=== PATIENT | male | born 1985 | race Caucasian/White ===

== ENCOUNTER 2018-09-08 01:42 | Inpatient (IN) | payer SELFPAY ==
[2018-09-08] MEDS ORDERED: NA CHLORIDE 0.9% 1,000 ML ONE (02:32)
[2018-09-08 02:33] LABS: Barbiturates NEGATIVE (NEGATIVE); Benzodiazepines NEGATIVE (NEGATIVE); Cocaine NEGATIVE (NEGATIVE); METHAMPHETAM NEGATIVE (NEGATIVE); Methadone NEGATIVE (NEGATIVE); Opiates NEGATIVE (NEGATIVE); Phencyclidine NEGATIVE (NEGATIVE); THC Cannibis NEGATIVE (NEGATIVE)
[2018-09-08] MEDS ORDERED: BENZTROPINE 2 MG/2 ML VIAL ONE (02:37)
[2018-09-08 02:50] LABS: Absolute Lymphocytes (CBC) 1.7 K/uL (0.7-4.9); Absolute Monocytes 0.6 K/uL (0.1-1.3); Absolute Neutrophil 11.1 K/uL (1.8-8.0); Basophils % 0.4 % (0-1.3); Eosinophils % 0.2 % (0-4.4); Hematocrit 49.7 % (39.6-49.0); Lymphocytes % 12.9 % (15.3-44.8); MPV 8.4 fL (7.6-11.3); Monocytes % 4.1 % (3.3-12.3); RBC Red Blood Cell Count 5.96 M/uL (4.33-5.43)
[2018-09-08 02:51] LABS: Protime INR 1.04
[2018-09-08 03:30] LABS: ALT/SGPT 24 U/L (12-78); AST/SGOT 13 U/L (15-37); Albumin 4.2 g/dL (3.4-5.0); Alkaline Phosphatase 65 U/L (45-117); BUN Blood Urea Nitrogen 17 mg/dL (7-18); Bicarbonate 25 mmol/L (21-32); Bilirubin Direct 0.1 mg/dL (0-0.2); Bilirubin Total 0.4 mg/dL (0.2-1.0); Glucose Level 146 mg/dL (74-106); Potassium 3.9 mmol/L (3.5-5.1); Protein, Total 8.1 g/dL (6.4-8.2); Sodium Level 141 mmol/L (136-145)
--- NOTE | 2018-09-08 05:53 | ER ---
Nurse's Notes [facility] Name: Berto Perez Sr Age: 32 yrs Sex: Male : 1985 Arrival Date: 09/08/2018 Time: 01:44 Bed 5 Private MD: Diagnosis: Acute intentional drug overdose;Altered mental status due to tegretol overdose Presentation: 09/08 01:45 Presenting complaint: EMS states: Reports pt family called EMS, they reported he took ea approximately 43 carbamazepine pills. EMS report pt is A and O x 4 but unsteady on his feet and groggy. Pt reports he took an unknown amount of carbamazepine pills Saturday morning and started feeling "buzzed", Saturday morning. Pt states "tonight I couldn't even walk". Transition of care: patient was not received from another setting of care. Onset of symptoms was September 08, 2018. Risk Assessment: Do you want to hurt yourself or someone else? Patient reports no desire to harm self or others. Other: Pt reports he is not sure if he was trying to hurt himself. Initial Sepsis Screen: Does the patient meet any 2 criteria?. Initial Sepsis Screen: Does the patient have a suspected source of infection? No. Patient's initial sepsis screen is negative. Care prior to arrival: None. 01:45 Method Of Arrival: EMS: [facility] 01:45 Acuity: QUINN 2 ea Historical: - Allergies: 04:06 No Known Allergies; ea - PMHx: 04:06 None; ea - PSHx: 04:06 None; ea - Immunization history:: Adult Immunizations up to date. - Social history:: Smoking status: unknown. - Ebola Screening: : No symptoms or risks identified at this time. Screenin:58 Abuse screen: Denies threats or abuse. Nutritional screening: No deficits noted. ea Tuberculosis screening: No symptoms or risk factors identified. Fall Risk IV access (20 points). Assessment: 02:05 General: Appears in no apparent distress. Behavior is drowsy, restless. Pain: Denies ea pain. Neuro: Level of Consciousness is awake, alert, obeys commands, Oriented to person, place, time, situation. Cardiovascular: Patient's skin is warm and dry. Respiratory: Airway is patent Respiratory effort is even, unlabored, Respiratory pattern is regular, symmetrical. GI: Abdomen is non-distended. : No signs and/or symptoms were reported regarding the genitourinary system. EENT: No signs and/or symptoms were reported regarding the EENT system. Derm: Skin is pink, warm \\T\\ dry. Musculoskeletal: No signs and/or symptoms reported regarding the musculoskeletal system. 03:01 Reassessment: Patient and/or family updated on plan of care and expected duration. Pain ea level reassessed. Pt resting with eyes closed, respirations even and unlabored. Chest expansions even and symmetrical. No s/s of pain or discomfort noted at this time. 04:04 Reassessment: Patient and/or family updated on plan of care and expected duration. Pain ea level reassessed. Pt resting with eyes closed, respirations even and unlabored, chest expansions even and symmetrical. No s/s of pain or discomfort noted at this time. 05:42 Reassessment: Pt resting with eyes closed, respirations even and unlabored. Chest ea expansions even and symmetrical. No s/s of pain or discomfort noted at this time. 06:27 Reassessment: Spoke with who states that pt took "many" pills due to her leaving [place] with the baby. Explained that pt was on suicide watch and would be going to ICU to be monitored. She understands. Did get to see pt but instructed on to wake him. She will contact pts mother and notify her of admission. 07:14 Reassessment: [facility] personnel reports that the pt needs a mental health warrant, sg reports that the pt no longer wants to be in the hospital, awaiting the mental health deputy/dyer helper to issue the mental health warrant. Overdose: 07:06 Patient took 43 tabs of Tegretol. Overdose occurred more than 10 hours ago. sg Vital Signs: 02:00 BP 147 / 102; Pulse 105; Resp 19; Temp 98.3; Pulse Ox 96% on R/A; ea 03:03 BP 107 / 65; Pulse 81; Resp 18; Pulse Ox 99% on R/A; ea 06:05 BP 113 / 68; Pulse 72; Resp 12; Pulse Ox 99% on R/A; tl2 Sheryl Coma Score: 04:30 Eye Response: to voice(3). Verbal Response: oriented(5). Motor Response: localizes snw pain(5). Total: 13. ED Course: 01:44 Patient arrived in ED. ea 01:45 Safety Checks: Personal items have been removed. The door is open or patient has been ea placed in a hallway bed/chair. There are no family/friend visitors at this time Sitter present at this time. 01:52 [facility] Crane [facility]-C [facility]. snw 01:53 Leobardo Lee MD is Attending Physician. snw 01:58 Triage completed. ea 02:00 Safety Checks: Personal items have been removed. The door is open or patient has been ea placed in a hallway bed/chair. There are no family/friend visitors at this time Sitter present at this time. 02:00 Patient has correct armband on for positive identification. Bed in low position. Call ea light in reach. Side rails up X2. 02:00 Arm band placed on right wrist. Patient placed in an exam room, on a stretcher, on ea pulse oximetry. 02:00 Safety checks: Items removed: yes. Door open/sign placed on door: Patient placed in ag4 hallway bed. Family/friend present: no. Sitter present: Yes. 02:01 Netta Darden RN is Primary Nurse. ea 02:01 Inserted saline lock: 18 gauge in right antecubital area, using aseptic technique. ea Blood collected. Inserted by Woodrow MAR. 02:15 Safety Checks: Personal items have been removed. The door is open or patient has been ea placed in a hallway bed/chair. There are no family/friend visitors at this time Sitter present at this time. 02:15 Safety checks: Items removed: yes. Door open/sign placed on door: Patient placed in ag4 hallway bed. Family/friend present: no. Sitter present: Yes. 02:30 Safety Checks: Personal items have been removed. The door is open or patient has been ea placed in a hallway bed/chair. There are no family/friend visitors at this time Sitter present at this time. 02:30 Safety checks: Items removed: yes. Door open/sign placed on door: Patient placed in ag4 hallway bed. Family/friend present: no. Sitter present: Yes. 02:45 Safety checks: Items removed: yes. Door open/sign placed on door: Patient placed in ag4 hallway bed. Family/friend present: no. Sitter present: Yes. 03:00 Safety checks: Items removed: yes. Door open/sign placed on door: Patient placed in ag4 hallway bed. Family/friend present: no. Sitter present: Yes. 03:15 Safety checks: Items removed: yes. Door open/sign placed on door: Patient placed in ag4 hallway bed. Family/friend present: no. Sitter present: Yes. 03:30 Safety checks: Items removed: yes. Door open/sign placed on door: Patient placed in ag4 hallway bed. Family/friend present: no. Sitter present: Yes. 03:32 CT Head Brain wo Cont In Process Unspecified. EDMS 03:45 Safety checks: Items removed: yes. Door open/sign placed on door: Patient placed in ag4 hallway bed. Family/friend present: no. Sitter present: Yes. 04:00 Safety checks: Items removed: yes. Door open/sign placed on door: Patient placed in ag4 hallway bed. Family/friend present: no. Sitter present: Yes. 04:15 Safety checks: Items removed: yes. Door open/sign placed on door: Patient placed in ag4 hallway bed. Family/friend present: no. Sitter present: Yes. 04:30 Safety checks: Items removed: yes. Door open/sign placed on door: Patient placed in ag4 hallway bed. Family/friend present: no. Sitter present: Yes. 04:45 Safety checks: Items removed: yes. Door open/sign placed on door: Patient placed in ag4 hallway bed. Family/friend present: no. Sitter present: Yes. 05:00 Safety checks: Items removed: yes. Door open/sign placed on door: Patient placed in ag4 hallway bed. Family/friend present: no. Sitter present: Yes. 05:49 Margot Concepcion MD is Hospitalizing Provider. wa 07:00 Safety checks: Items removed: yes. Door open/sign placed on door: yes. Family/friend ms present: no. Sitter present: Yes. 07:15 Safety checks: Items removed: yes. Door open/sign placed on door: yes. Family/friend ms present: no. Sitter present: Yes. 07:28 [facility] pool lifeguard in room with PT. ms 07:30 Safety checks: Items removed: yes. Door open/sign placed on door: yes. Family/friend ms present: no. Sitter present: Yes. 07:45 Safety checks: Items removed: yes. Door open/sign placed on door: yes. Family/friend ms present: no. Sitter present: Yes. 07:49 Diet: Patient given a regular meal tray. ms 08:00 Safety checks: Items removed: yes. Door open/sign placed on door: yes. Family/friend ms present: no. Sitter present: Yes. 08:15 Safety checks: Items removed: yes. Door open/sign placed on door: yes. Family/friend ms present: no. Sitter present: Yes. 08:30 Safety checks: Items removed: yes. Door open/sign placed on door: yes. Family/friend ms present: no. Sitter present: Yes. 08:45 Safety checks: Items removed: yes. Door open/sign placed on door: yes. Family/friend ms present: no. Sitter present: Yes. 09:00 Safety checks: Items removed: yes. Door open/sign placed on door: yes. Family/friend ms present: no. Sitter present: Yes. 09:16 Patient admitted, IV remains in place. intact, No redness/swelling at site. sg Administered Medications: 02:19 Drug: NS 0.9% 1000 ml Route: IV; Rate: 1 bolus; Site: right antecubital; ea 03:30 Follow up: Response: No adverse reaction; IV Status: Completed infusion; IV Intake: ea 1000ml 02:30 Drug: COgentin 2 mg Route: IVP; Site: right antecubital; ea 03:00 Follow up: Response: No adverse reaction ea Intake: 03:30 IV: 1000ml; Total: 1000ml. ea Outcome: 05:52 Decision to Hospitalize by Provider. wa 09:15 Admitted to ICU accompanied by nurse, via stretcher, room 7, on monitor, with chart, sg Report called to ISABELA Rascon 09:15 Condition: stable 09:15 Instructed on follow up and referral plans. safety practices, Demonstrated understanding of instructions. 09:56 Patient left the ED. iw Signatures: Dispatcher [employer] Yinka Rod RN RN sg Karina Crane, CURRICULUM DEVELOPMENT MANAGER-C CURRICULUM DEVELOPMENT MANAGER-Csnw Elham Haywood, RN RN Edilma Gregg RN RN iw Solis, Maria ms Umesh, Concepcion, ISABELA RN tl2 Netta Darden RN RN Leobardo Lee MD MD wa Guzman, Charles ag4 Corrections: (The following items were deleted from the chart) 02:02 01:58 Fall Risk None identified. [facility] 02:03 02:00 BP 147 / 102; Pulse 105bpm; Resp 19bpm; Pulse Ox 100%; Temp 98.3F; [facility] 07:47 07:28 [facility] pool lifeguard in room with PTP ms ms
--- NOTE | 2018-09-08 05:53 | EDPHYS ---
Physician Documentation [facility] Name: Berto Perez Sr Age: 32 yrs Sex: Male : 1985 Arrival Date: 09/08/2018 Time: 01:44 Bed 5 Private MD: ED Physician Leobardo Lee HPI: 09/08 02:01 This 32 yrs old Male presents to ER via EMS with complaints of Overdose. snw 02:01 Context: Method: the patient has a confirmed or suspected ingestion, Tegretol, Time: snw the patient's OD/poisoning occurred at an unknown time, Extent: "a lot", the OD/poisoning occurred at at home, Psychiatric history: the patient has a known psychiatric disorder, depression, Previous OD/poisoning history: yes, 3 year(s) ago. Associated signs and symptoms: Pertinent positives: fall x 4 episodes. Severity of symptoms: At their worst the symptoms were moderate. The patient has experienced a previous episode. It is unknown whether or not the patient has recently seen a physician. Pt got into an argument with girlfriend and took "a lot" of tegretol. Historical: - Allergies: 04:06 No Known Allergies; ea - PMHx: 04:06 None; ea - PSHx: 04:06 None; ea - Immunization history:: Adult Immunizations up to date. - Social history:: Smoking status: unknown. - Ebola Screening: : No symptoms or risks identified at this time. ROS: 02:00 Constitutional: Negative for fever, chills, and weight loss, Eyes: Negative for injury, snw pain, redness, and discharge, ENT: Negative for injury, pain, and discharge, Neck: Negative for injury, pain, and swelling, Cardiovascular: Negative for chest pain, palpitations, and edema, Respiratory: Negative for shortness of breath, cough, wheezing, and pleuritic chest pain, Abdomen/GI: Negative for abdominal pain, nausea, vomiting, diarrhea, and constipation, Back: Negative for injury and pain, : Negative for injury, bleeding, discharge, and swelling, MS/Extremity: Negative for injury and deformity. 02:00 Neuro: Negative for headache, weakness, numbness, tingling, and seizure. 02:00 Skin: Positive for abrasion(s). 02:00 Psych: Positive for suicide gesture, "because I was mad". 05:25 All other systems are negative. wa Exam: 01:57 ENT: Nares patent. No nasal discharge, no septal abnormalities noted. Tympanic snw membranes are normal and external auditory canals are clear. Oropharynx with no redness, swelling, or masses, exudates, or evidence of obstruction, uvula midline. Mucous membranes moist. Neck: Trachea midline, no thyromegaly or masses palpated, and no cervical lymphadenopathy. Supple, full range of motion without nuchal rigidity, or vertebral point tenderness. No Meningismus. Chest/axilla: Normal chest wall appearance and motion. Nontender with no deformity. No lesions are appreciated. 01:57 Respiratory: Lungs have equal breath sounds bilaterally, clear to auscultation and percussion. No rales, rhonchi or wheezes noted. No increased work of breathing, no retractions or nasal flaring. Abdomen/GI: Soft, non-tender, with normal bowel sounds. No distension or tympany. No guarding or rebound. No evidence of tenderness throughout. Back: No spinal tenderness. No costovertebral tenderness. Full range of motion. 01:57 Constitutional: The patient appears lethargic. 01:57 Head/face: Noted is contusion, that is superficial, of the left eye. 01:57 Eyes: Pupils: dilated, bilaterally, equal, Extraocular movements: unable to assess. 01:57 Cardiovascular: Rate: tachycardic, Rhythm: regular, Pulses: no pulse deficits are appreciated. 01:57 Skin: injury, abrasion(s), small abrasion noted, of the left eye and abdomen. 01:57 Neuro: Orientation: to person, place, time, situation, Mentation: responsive to voice seizure activity, is not displayed by the patient. 01:57 Psych: Patient having thoughts of suicide. Plan for suicide is overdose on Tegretol Vital Signs: 02:00 BP 147 / 102; Pulse 105; Resp 19; Temp 98.3; Pulse Ox 96% on R/A; ea 03:03 BP 107 / 65; Pulse 81; Resp 18; Pulse Ox 99% on R/A; ea 06:05 BP 113 / 68; Pulse 72; Resp 12; Pulse Ox 99% on R/A; tl2 Sheryl Coma Score: 04:30 Eye Response: to voice(3). Verbal Response: oriented(5). Motor Response: localizes snw pain(5). Total: 13. MDM: 02:06 Patient medically screened. wa 04:29 Other consultation: Poison control, at 04:20, supportive care and IV fluids. snw 05:37 Differential diagnosis: Ingestion/exposure to tegretol with intent to harm self. Data wa reviewed: vital signs, nurses notes. Test interpretation: by ED physician or midlevel provider:. 05:41 Test interpretation: by ED physician or midlevel provider: APAP negative. ASA negative. wa hyperglycemia at 146. leukocytosis at 13.5. UDS and ETOH negative. carbamazepine 33.[address] negative. Response to treatment: the patient's symptoms have markedly improved after treatment. Physician consultation: Margot Concepcion MD. 05:47 ED course: spoke with poison control regarding OD. advised fluids and observation. wa monitor for worsening. 05:48 Test interpretation: by ED physician or midlevel provider: HR 90. sinus. nml axis. nml wa QRS. normal intervals. ST-T wnl. 05:53 ED course: received cogentin for non-purposeful movements consistent with myoclonus vs wa dystonia. 09/08 01:47 Order name: Acetaminophen sn 09/08 01:47 Order name: Basic Metabolic Panel snw 09/08 01:47 Order name: CBC with Diff snw 09/08 01:47 Order name: ETOH Level snw 09/08 01:47 Order name: Hepatic Function snw 09/08 01:47 Order name: PT-INR snw 09/08 01:47 Order name: Ptt, Activated snw 09/08 01:47 Order name: Salicylate sn 09/08 01:47 Order name: Urine Drug Screen; Complete Time: 03:29 snw 09/08 01:48 Order name: Acetaminophen Level; Complete Time: 04:14 EDMS 09/08 01:48 Order name: Basic Metabolic Panel; Complete Time: 04:14 EDMS 09/08 01:49 Order name: CBC with Automated Diff; Complete Time: 03:29 EDMS 09/08 01:49 Order name: Alcohol Serum/Plasma; Complete Time: 03:29 EDMS 09/08 01:47 Order name: EKG; Complete Time: 01:50 snw 09/08 01:47 Order name: EKG - Nurse/Tech; Complete Time: 02:31 snw 09/08 01:47 Order name: IV Saline Lock; Complete Time: 02:31 snw 09/08 01:47 Order name: Labs collected and sent; Complete Time: 02:31 snw 09/08 01:49 Order name: Liver (Hepatic) Function; Complete Time: 04:14 EDMS 09/08 01:49 Order name: Protime (+INR); Complete Time: 03:29 EDMS 09/08 01:49 Order name: PTT, Activated Partial Thromb; Complete Time: 03:29 EDMS 09/08 01:49 Order name: Salicylates Level; Complete Time: 03:29 EDMS 09/08 02:22 Order name: CT Head Brain wo Cont wa 09/08 02:27 Order name: Urine Dipstick--Ancillary (enter results) cm6 09/08 02:43 Order name: Carbamazepine (Tegretol) Level; Complete Time: 04:14 EDMS 09/08 04:22 Order name: EKG; Complete Time: 04:23 snw 09/08 05:47 Order name: Case Management Consult EDRI 09/08 05:47 Order name: Regular EDRI 09/08 01:47 Order name: Urine Dipstick-Ancillary (obtain specimen); Complete Time: 02:07 snw 09/08 01:57 Order name: O2; Complete Time: 02:30 snw Administered Medications: 02:19 Drug: NS 0.9% 1000 ml Route: IV; Rate: 1 bolus; Site: right antecubital; ea 03:30 Follow up: Response: No adverse reaction; IV Status: Completed infusion; IV Intake: ea 1000ml 02:30 Drug: COgentin 2 mg Route: IVP; Site: right antecubital; ea 03:00 Follow up: Response: No adverse reaction ea Disposition: 05:49 Co-signature as Attending Physician, Leobardo Lee MD. jim Disposition: 09/08/18 05:52 Hospitalization ordered by Margot Concepcion for Observation. Preliminary diagnosis are Acute intentional drug overdose, Altered mental status due to tegretol overdose. - Bed requested for Intensive Care Unit. - Status is Observation. iw - Condition is Stable. - Problem is new. - Symptoms have improved. UTI on Admission? No Signatures: Dispatcher [facility] Lindsay Mari RN RN Karina Mathews AIRLINE RADIO OPERATOR-C AIRLINE RADIO OPERATOR-Csnw Edilma Wells, RN ISABELA iw Netta Darden, RN Leobardo Huber ea, MD MD wa Corrections: (The following items were deleted from the chart) 02:42 01:50 CARBAMAZEPINE (TEGRETOL)+C.LAB.BRZ ordered. EDMS EDMS 05:53 05:52 Hospitalization Ordered by Margot Concepcion MD for Observation. Preliminary mw diagnosis is Acute intentional drug overdose; Altered mental status due to tegretol overdose. Bed requested for Telemetry/MedSurg (observation). Status is Observation. Condition is Stable. Problem is new. Symptoms have improved. UTI on Admission? No. ri 09:56 05:53 09/08/2018 05:52 Hospitalization Ordered by Margot Concepcion MD for Observation. iw Preliminary diagnosis is Acute intentional drug overdose; Altered mental status due to tegretol overdose. Bed requested for Intensive Care Unit. Status is Observation. Condition is Stable. Problem is new. Symptoms have improved. UTI on Admission? No. mw
[2018-09-08] MEDS ORDERED: NA CHLORIDE 0.9% 1,000 ML IV SCH (06:00)
--- NOTE | 2018-09-08 06:50 | P.HP ---
Certification for Inpatient Patient admitted to: Inpatient With expected LOS: >2 Midnights Patient will require the following post-hospital care: None Practitioner: I am a practitioner with admitting privileges, knowledge of patient current condition, hospital course, and medical plan of care. Services: Services provided to patient in accordance with Admission requirements found in Title 42 Section 412.3 of the Code of Federal Regulations Patient History Date of Service: 09/08/18 Reason for admission: Suicidal ideations History of Present Illness: Patient is a 32-year-old gentleman who has been upset because apparently he got into an argument with his girlfriend. Patient apparently took 43 Tegretol pills , and he apparently was trying to hurt himself. Patient at this time is not that communicative. He does not rule a lot of information and he is lethargic. He is arousable. But even when he arouses he just as for risk friend to come and talk to him. Will admit him to the hospital for monitoring of his Tegretol level. Will also needs psychiatric evaluation for inpatient psychiatry. - Past Medical/Surgical History Past Medical History: Unable to obtain Past Surgical History: Unable to obtain - Family History Father Family History: Reviewed- Non-Contributory - Social History Smoking Status: Current some day smoker Alcohol use: Yes CD- Drugs: Yes Review of Systems 10-point ROS is otherwise unremarkable Physical Examination - Vital Signs Temperature: 99 F Blood Pressure: 130/80 Pulse: 78 Respirations: 18 Pulse Ox (%): 99 - Physical Exam General: Alert, Other (Lethargic) HEENT: Atraumatic, PERRLA, Mucous membr. moist/pink, EOMI, Sclerae nonicteric Neck: Supple, 2+ carotid pulse no bruit, No LAD, Without JVD or thyroid abnormality Respiratory: Clear to auscultation bilaterally, Normal air movement Cardiovascular: Regular rate/rhythm, Normal S1 S2, No murmurs Gastrointestinal: Normal bowel sounds, Soft and benign, Non-distended, No tenderness Musculoskeletal: No clubbing, No swelling, No tenderness Integumentary: No rashes Neurological: Normal speech, Normal tone, Sensation intact, Cranial nerves 3-12 intact, Normal affect, Abnormal gait, Abnormal strength Lymphatics: No axilla or inguinal lymphadenopathy - Studies Laboratory Data (last 24 hrs) 09/08/18 02:10: PT 12.2, INR 1.04, APTT 27.7 09/08/18 02:10: WBC 13.5 H, Hgb 16.7, Hct 49.7 H, Plt Count 351 09/08/18 02:10: Sodium 141, Potassium 3.9, BUN 17, Creatinine 1.17, Glucose 146 H, Total Bilirubin 0.4, AST 13 L, ALT 24, Alkaline Phosphatase 65 Assessment & Plan - Problems (Diagnosis) (1) Suicidal ideation Current Visit: Yes Status: Acute (2) Tegretol toxicity Current Visit: Yes Status: Acute (3) Overdose of anticonvulsant Current Visit: Yes Status: Acute - Plan PLAN: 1. Aggressive hydration 2. Suicidal precautions 3. Monitor electrolytes 4. Tegretol toxicity-check levels daily 5. Repeat labs in the evening 6. GI/DVT prophylaxis Discharge Plan: Psychiatry Plan to discharge in: Greater than 2 days - Advance Directives Does patient have a Living Will: No Does patient have a Durable POA for Healthcare: No - Code Status/Comfort Care Code Status Assessed: Yes Code Status: Full Code Critical Care: No Time Spent Managing PTS Care (In Minutes): 45
--- NOTE | 2018-09-08 09:54 | EKG ---
Test Date: 2018-09-08 Test Time: 01:54:23 Hydraulic Hammer Operator: AG3 MEASUREMENT RESULTS: Intervals: Rate: 90 [place]: 146 QRSD: 78 QT: 346 QTc: 423 [place]: P: 58 AZ: 146 QRS: 51 T: 48 INTERPRETIVE STATEMENTS: Normal sinus rhythm Normal ECG Compared to ECG 09/19/2013 00:12:24 Sinus tachycardia no longer present Electronically Signed On 09-08-18 09:53:37 CDT by Kameron Jin
[2018-09-08] MEDS: ENOXAPARIN 40 MG/0.4 ML SQ SCH (10:03)
--- NOTE | 2018-09-08 10:36 | RAD REPORT ---
EXAM DESCRIPTION: CT - Head Brain Wo Cont - 09/08/2018 6:14 am CLINICAL HISTORY: The patient is 32 years old and is Male; AMS. drug OD TECHNIQUE: Axial computed tomography images of the head/brain without intravenous contrast. Sagitt al and coronal reformatted images were created and reviewed. This CT exam was performed using one o r more of the following dose reduction techniques: automated exposure control, adjustment of the mA and/or kV according to patient size, and/or use of iterative reconstruction technique. COMPARISON: No relevant prior studies available. FINDINGS: BRAIN: Unremarkable. The nicole-white matter differentiation is preserved . No hemorrhag e. No significant white matter disease. No edema. No extra-axial fluid collections. VENTRICLES: Unremarkable. No ventriculomegaly. BONES/JOINTS: No acute fracture. SOFT TISSUES: Unremarkable. SINUSES: Unremarkable as visualized. No acute sinusitis. MASTOID AIR CELLS: Unremarkable as visualized. No mastoid effusion. IMPRESSION: No acute intracranial findings. Electronically signed by: Shannon Guerra MD 09/08/2018 3:36 AM CDT Due to temporary technical issues with the PACS/Fluency reporting system, reports are being signed by the in house radiologist as a courtesy to ensure prompt reporting. The interpreting radiologist is f ully responsible for the content of the report.
--- NOTE | 2018-09-08 12:54 | P.PN ---
Subjective Date of Service: 09/08/18 Primary Care Provider: AMIRA Chief Complaint: Suicidal ideations Subjective: Doing well (Patient doing well this time. Patient admits overdosing on medication. Patient desires to leave.) Physical Examination - Vital Signs Temperature: 99 F Blood Pressure: 130/80 Pulse: 78 Respirations: 18 Pulse Ox (%): 99 - Physical Exam General: Alert, In no apparent distress, Cooperative HEENT: Atraumatic Neck: Supple Respiratory: Clear to auscultation bilaterally, Normal air movement Cardiovascular: Normal pulses, Regular rate/rhythm Gastrointestinal: Normal bowel sounds, Soft and benign, Non-distended Integumentary: No erythema, No warmth, No cyanosis Neurological: Normal speech, Normal strength at 5/5 x4 extr, Normal tone, Abnormal affect (Increased anxiety noted) - Studies Laboratory Data (last 24 hrs) 09/08/18 02:10: PT 12.2, INR 1.04, APTT 27.7 09/08/18 02:10: WBC 13.5 H, Hgb 16.7, Hct 49.7 H, Plt Count 351 09/08/18 02:10: Sodium 141, Potassium 3.9, BUN 17, Creatinine 1.17, Glucose 146 H, Total Bilirubin 0.4, AST 13 L, ALT 24, Alkaline Phosphatase 65 Assessment & Plan Discharge Plan: Psychiatry Plan to discharge in: 24 Hours (To 48 hr) Physician Review Additional Text: Impression: Tegretol overdose with suicidal ideation complicated with history of schizophrenia, noncompliance with medication Tobacco abuse Plan: Tegretol overdose with suicidal ideation complicated with history of schizophrenia, noncompliance with medication Patient admitted to ICU for 1 on 1 care due to suicide ideation. Case discussed with [facility] who has evaluated patient. Both [facility] and myself agree that the patient should require psychiatric inpatient treatment once medically stable. Tegretol level elevated. Poison control has been called. Continue monitor Tegretol levels daily. Continue monitor lab closely. Continue IV fluids. Patient likely with noncompliance of his medication and follow up with psychiatry. Patient in danger of leaving facility with still suicide ideation. Patient now has senior care warrant to keep the patient hospitalized. Will monitor closely. Suicide prevention and place. Anticipate improvement likely by tomorrow. If clinically stable will medically clear to pursue inpatient psychiatric placement. Tobacco abuse: Will provide nicotine patch. Time Spent Managing Pts Care (In Minutes): 55
[2018-09-08 15:14] LABS: Urine Blood NEGATIVE (NEG); Urine Glucose NEGATIVE (NEG); Urine Protein 1+ (NEG); Urine Specific Gravity >1.030 (1.005-1.030); Urine pH 5.5 (5.0-7.0)
[2018-09-08] MEDS: NACHLORIDE 0.45% 1,000 ML IV SCH ×2 (17:49→21:00)
[2018-09-08] MEDS: ACETAMINOPHEN 500 MG TAB PO PRN (19:29)
[2018-09-09] MEDS: NACHLORIDE 0.45% 1,000 ML IV SCH ×2 (01:33→11:40)
[2018-09-09 05:16] LABS: Absolute Lymphocytes (CBC) 3.5 K/uL (0.7-4.9); Absolute Monocytes 0.5 K/uL (0.1-1.3); Absolute Neutrophil 5.8 K/uL (1.8-8.0); Basophils % 0.8 % (0-1.3); Eosinophils % 0.6 % (0-4.4); Hematocrit 44.6 % (39.6-49.0); Lymphocytes % 35.1 % (15.3-44.8); MPV 8.2 fL (7.6-11.3); Monocytes % 4.6 % (3.3-12.3); RBC Red Blood Cell Count 5.26 M/uL (4.33-5.43)
[2018-09-09 05:23] LABS: Protime INR 0.89
[2018-09-09 05:51] LABS: Albumin 3.3 g/dL (3.4-5.0); Bilirubin Total 0.2 mg/dL (0.2-1.0); Magnesium 2.1 mg/dL (1.8-2.4); Protein, Total 6.4 g/dL (6.4-8.2)
[2018-09-09] MEDS: ENOXAPARIN 40 MG/0.4 ML SQ SCH (09:25)
[2018-09-09] MEDS: NICOTINE 21 MG/PAT TD SCH (09:25)
[2018-09-09] MEDS: FAMOTIDINE 20 MG TAB PO SCH ×2 (11:40→21:51)
[2018-09-09] MEDS ORDERED: FAMOTIDINE 20 MG TAB ONE (11:55)
--- NOTE | 2018-09-09 12:25 | RAD REPORT ---
EXAM DESCRIPTION: CT - Head Brain Wo Cont - 09/09/2018 12:17 pm CLINICAL HISTORY: Weakness, dizziness, blurred vision COMPARISON: CT study September 08, 2018 TECHNIQUE: Axial 5 mm thick images of the head were obtained without IV contrast. All CT scans are performed using dose optimization technique as appropriate and may include automated exposure control or mA/KV adjustment according to patient size. FINDINGS: No intracranial hemorrhage, mass, edema or shift of mid-line structures. No acute infarcti on changes seen. No abnormal extra-axial fluid collections. No cortical edema or sulcal effacement. V entricles are normal. No evidence for an sella or supra sella abnormality. No gross globe or orbital content abnormality seen. Mastoid air cells and visualized portions of the paranasal sinuses are clear. No acute bony findings. IMPRESSION: No acute intracranial finding. No significant change from prior day imaging.
--- NOTE | 2018-09-09 12:27 | RAD REPORT ---
EXAM DESCRIPTION: CT - C Spine Wo Con - 09/09/2018 12:17 pm CLINICAL HISTORY: Weakness, dizziness, blurred vision COMPARISON: None. TECHNIQUE: Axial 2 mm thick images of the cervical spine were obtained with sagittal and coronal rec onstruction images generated and reviewed. All CT scans are performed using dose optimization technique as appropriate and may include automated exposure control or mA/KV adjustment according to patient size. FINDINGS: Cervical bodies are normal in height. C2- T2 are normal in alignment. The occipital condyl es are normally positioned relative to the C1 arch. C1 arch is normally positioned to the articular s urfaces of the C2 body. Mastoid air cells are clear. No skullbase fracture. No tonsillar ectopia. No disk space narrowing. No fracture or acute bony abnormality. No paraspinal mass or hematoma. Central canal detail is inherently limited on CT imaging. No mass, hematoma or suspicious soft tissue finding. IMPRESSION: Negative CT cervical spine examination.
--- NOTE | 2018-09-09 12:27 | P.PN ---
Subjective Date of Service: 09/09/18 Primary Care Provider: AMIRA Chief Complaint: Suicidal ideations Subjective: Other (Patient doing well this time. Patient reported some headache today. Patient had reported a fall prior to admission) Physical Examination - Vital Signs Temperature: 97.4 F Blood Pressure: 136/88 Pulse: 100 Respirations: 15 Pulse Ox (%): 98 - Physical Exam General: Alert, In no apparent distress, Oriented x3, Cooperative HEENT: Atraumatic Neck: Supple Respiratory: Clear to auscultation bilaterally, Normal air movement Cardiovascular: Normal pulses, Regular rate/rhythm Gastrointestinal: Normal bowel sounds, Soft and benign, Non-distended, No masses , No rebound, No guarding Musculoskeletal: No erythema, No tenderness, No warmth Integumentary: No tenderness/swelling, No erythema, No warmth, No cyanosis Neurological: Normal speech, Normal strength at 5/5 x4 extr, Normal tone - Studies Medications List Reviewed: Yes Assessment & Plan Discharge Plan: Psychiatry Plan to discharge in: 24 Hours Physician Review Additional Text: Impression: Tegretol overdose with suicidal ideation complicated with history of schizophrenia, noncompliance with medication Tobacco abuse Recent fall GERD Plan: Tegretol overdose with suicidal ideation complicated with history of schizophrenia, noncompliance with medication Patient remained stable in ICU. Continue with 1 on 1 care. Tegretol level has decreased. Continue to monitor closely. Once Tegretol level is within normal range then will proceed with inpatient psych transfer after that time. Patient currently in senior living. Patient had reported a of a recent fall prior to admission. He reports a mild headache. Initial CT head unremarkable. Will repeat CT head and neck to verify. Will monitor closely. Tobacco abuse: Will provide nicotine patch. Recent fall: Will check CT scan and neck. GERD: Will start Pepcid. Time Spent Managing Pts Care (In Minutes): 55
[2018-09-09] MEDS ORDERED: NACHLORIDE 0.45% 1,000 ML IV SCH (13:00)
[2018-09-09] MEDS ORDERED: ACT CHARCOAL/SORB 50 GM/240ML PO STA ×2 (15:03→15:18)
[2018-09-09] MEDS ORDERED: ACTIVATED CHARCOAL 25 GM/120 ML TUBE PO STA (15:04)
[2018-09-09] MEDS: ACTIVATED CHARCOAL 25 GM/120 ML TUBE PO SCH ×2 (20:00→21:00)
[2018-09-10] MEDS: ACTIVATED CHARCOAL 25 GM/120 ML TUBE PO SCH (01:00)
[2018-09-10 05:44] LABS: Albumin 3.5 g/dL (3.4-5.0); Bilirubin Total 0.2 mg/dL (0.2-1.0); Magnesium 2.1 mg/dL (1.8-2.4); Potassium 4.2 mmol/L (3.5-5.1); Protein, Total 6.9 g/dL (6.4-8.2)
[2018-09-10 05:47] LABS: Absolute Lymphocytes (CBC) 3.5 K/uL (0.7-4.9); Absolute Monocytes 0.5 K/uL (0.1-1.3); Absolute Neutrophil 6.2 K/uL (1.8-8.0); Basophils % 0.9 % (0-1.3); Lymphocytes % 33.6 % (15.3-44.8); MPV 8.1 fL (7.6-11.3); Monocytes % 5.1 % (3.3-12.3)
[2018-09-10] MEDS: ACETAMINOPHEN 500 MG TAB PO PRN (06:43)
[2018-09-10] MEDS: NICOTINE 21 MG/PAT TD SCH (08:29)
[2018-09-10] MEDS: FAMOTIDINE 20 MG TAB PO SCH (08:29)
[2018-09-10] MEDS: ENOXAPARIN 40 MG/0.4 ML SQ SCH (08:29)
--- NOTE | 2018-09-10 12:53 | P.PN ---
Subjective Date of Service: 09/10/18 Primary Care Provider: AMIRA Chief Complaint: Suicidal ideations Subjective: Doing well (Patient doing well this time. No significant complaints. Patient willing to go to inpatient psychiatric facility.) Physical Examination - Vital Signs Temperature: 97.5 F Blood Pressure: 139/92 Pulse: 87 Respirations: 20 Pulse Ox (%): 100 - Physical Exam General: Alert, In no apparent distress, Oriented x3, Cooperative HEENT: Atraumatic Neck: Supple Respiratory: Clear to auscultation bilaterally, Normal air movement Cardiovascular: Normal pulses, Regular rate/rhythm Gastrointestinal: Normal bowel sounds, Soft and benign, Non-distended, No masses , No rebound, No guarding Neurological: Normal speech, Normal strength at 5/5 x4 extr, Normal tone, Normal affect - Studies Medications List Reviewed: Yes Assessment & Plan Discharge Plan: Psychiatry Plan to discharge in: 24 Hours Physician Review Additional Text: Impression: Tegretol overdose with suicidal ideation complicated with history of schizophrenia, noncompliance with medication Tobacco abuse Recent fall GERD Plan: Tegretol overdose with suicidal ideation complicated with history of schizophrenia, noncompliance with medication Patient has remained stable. Tegretol level now within normal range. Patient did receive activated charcoal yesterday. Patient was evaluated by [facility] the other day. They recommended inpatient psychiatric treatment. Patient medically stable and cleared at this time. Will pursue inpatient psychiatric transfer. Will arrange for transfer. Tobacco abuse: Will provide nicotine patch if required. Recent fall: CT scan of the neck and head unremarkable. GERD: Will continue with Pepcid. Time Spent Managing Pts Care (In Minutes): 55
[2018-09-10 13:17] LABS: HIV AG/AB 4TH GEN Non-reactive (Non-reactive)
--- NOTE | 2018-09-10 17:14 | P.DS ---
Admission Date: 09/08/18 Discharge Date: 09/10/18 Primary Care Provider: AMIRA Disposition: AMA-LEFT AGAINST MEDICAL ADVIC Discharge Condition: GOOD Reason for Admission: Suicidal ideations [facility] Procedures: CT scan: COMPARISON: CT study September 08, 2018 TECHNIQUE: Axial 5 mm thick images of the head were obtained without IV contrast. All CT scans are performed using dose optimization technique as appropriate and may include automated exposure control or mA/KV adjustment according to patient size. FINDINGS: No intracranial hemorrhage, mass, edema or shift of mid-line structures. No acute infarction changes seen. No abnormal extra-axial fluid collections. No cortical edema or sulcal effacement. Ventricles are normal. No evidence for an sella or supra sella abnormality. No gross globe or orbital content abnormality seen. Mastoid air cells and visualized portions of the paranasal sinuses are clear. No acute bony findings. IMPRESSION: No acute intracranial finding. No significant change from prior day imaging. CT Neck: COMPARISON: None. TECHNIQUE: Axial 2 mm thick images of the cervical spine were obtained with sagittal and coronal reconstruction images generated and reviewed. All CT scans are performed using dose optimization technique as appropriate and may include automated exposure control or mA/KV adjustment according to patient size. FINDINGS: Cervical bodies are normal in height. C2- T2 are normal in alignment. The occipital condyles are normally positioned relative to the C1 arch. C1 arch is normally positioned to the articular surfaces of the C2 body. Mastoid air cells are clear. No skullbase fracture. No tonsillar ectopia. No disk space narrowing. No fracture or acute bony abnormality. No paraspinal mass or hematoma. Central canal detail is inherently limited on CT imaging. No mass, hematoma or suspicious soft tissue finding. IMPRESSION: Negative CT cervical spine examination. Medical Problem List: Tegretol overdose with suicidal ideation complicated with history of schizophrenia, noncompliance with medication Tobacco abuse Recent fall GERD Brief History of Present Illness: 32-year-old male with history of schizophrenia presented to the emergency room after taking 43 pills of Tegretol. Patient was apparently upset with girlfriend. Patient did this intentionally to hurt himself. Patient was admitted for further treatment. Initial Tegretol level was elevated. Hospital Course: Patient presented with Tegretol overdose with suicidal ideation complicated with history of schizophrenia and noncompliance with medication. Tegretol level was elevated. Poison control was called. They recommended to continue to monitor Tegretol levels until they normalized. Patient received IV fluids with improvement. Patient did receive activated charcoal as well as recommended by poison control. Patient was evaluated by MR initially upon admission. They agreed that the patient needed to be hospitalized and would require inpatient psychiatric transfer once medically stable. The patient became very belligerent initially in the ICU. Patient required residential warrant to keep him in the hospital to receive treatment. His Tegretol did normalized. Initiation of transfer to inpatient psychiatric facility was conducted. 1 inpatient facility denied his admission. The patient was aware of this response and he became very agitated. MR was called to reassess the patient. Before MR could come to reassess the patient, the patient left against medical advice as his residential warrant had . Vital Signs/Physical Exam: Temp Pulse Resp BP Pulse Ox 97.5 F 72 19 138/90 98 09/10/18 12:53 09/10/18 15:00 09/10/18 15:00 09/10/18 15:00 09/10/18 15:00 General: Alert HEENT: Atraumatic Cardiovascular: Normal pulses, Regular rate/rhythm Neurological: Abnormal affect (Patient with increased anxiety) Laboratory Data at Discharge: WBC 10.4 K/uL (4.3-10.9) 09/10/18 05:13 Hgb 15.6 g/dL (13.6-17.9) 09/10/18 05:13 Hct 47.0 % (39.6-49.0) 09/10/18 05:13 Plt Count 294 K/uL (152-406) 09/10/18 05:13 PT 10.5 SECONDS (9.5-12.5) 09/09/18 04:50 INR 0.89 09/09/18 04:50 APTT 27.3 SECONDS (24.3-36.9) 09/09/18 04:50 Sodium 141 mmol/L (136-145) 09/10/18 05:13 Potassium 4.2 mmol/L (3.5-5.1) 09/10/18 05:13 BUN 10 mg/dL (7-18) 09/10/18 05:13 Creatinine 1.07 mg/dL (0.55-1.3) 09/10/18 05:13 Glucose 102 mg/dL (74-106) 09/10/18 05:13 Phosphorus 4.0 mg/dL (2.5-4.9) 09/09/18 04:50 Magnesium 2.1 mg/dL (1.8-2.4) 09/10/18 05:13 Total Bilirubin 0.2 mg/dL (0.2-1.0) 09/10/18 05:13 AST 10 U/L (15-37) L 09/10/18 05:13 ALT 20 U/L (12-78) 09/10/18 05:13 Alkaline Phosphatase 60 U/L (45-117) 09/10/18 05:13 Home Medications: NK [No Home Meds] 09/08/18 Patient Discharge Instructions: Patient left against medical advice. Diet: AHA Activity: Ad toshia Time spent managing pt's care (in minutes): 55
[2018-09-10 17:39] LABS: HBsAG Nonreactive (Nonreactive); Hepatitis A IgM Antibody Nonreactive
[2018-09-11 18:08] LABS: Hep C Virus RNA (PCR)log 5.96 log IU/mL
== END 2018-09-10 17:15 | disposition left against medical advice (07) | DRG 918 ==
LOC: ER 01:42 → ERHOLD 05:39 → 3RD-ICU 09:37
PROVIDERS: ADMIT Hospitalist; ATTEND Family Medicine
DX: T42.1X2A Poisoning by iminostilbenes, intentional self-harm, initial encounter (principal); R45.851 Suicidal ideations; Y92.9 Unspecified place or not applicable; F17.210 Nicotine dependence, cigarettes, uncomplicated; F20.9 Schizophrenia, unspecified; Z91.14 Patient's other noncompliance with medication regimen; K21.9 Gastro-esophageal reflux disease without esophagitis; R51 Headache; Z91.81 History of falling
CPT/HCPCS: 36415; 70450; 72125; 80048; 80053; 80074; 80076; 80156; 80307; 80320; 80329; 81003; 83735; 84100; 85025; 85610; 85730; 87389; 87522; 93005; 96361; 96374; 97116; 97161; 97530; 99285; J0515; J1650; J7030

== ENCOUNTER 2020-09-15 01:03 | Emergency (ER) | payer OTHER, SELFPAY ==
[2020-09-15] MEDS ORDERED: MEPERIDINE HCL 50 MG/ML ONE (02:05)
[2020-09-15 02:29] LABS: Absolute Lymphocytes (CBC) 2.2 K/uL (0.7-4.9); Hematocrit 44.3 % (39.6-49.0); Lymphocytes % 28.8 % (15.3-44.8); MPV 8.2 fL (7.6-11.3); RBC Red Blood Cell Count 5.38 M/uL (4.33-5.43)
[2020-09-15 02:34] LABS: BUN Blood Urea Nitrogen 14 mg/dL (7-18); Bicarbonate 23 mmol/L (21-32); Glucose Level 92 mg/dL (74-106); Potassium 4.3 mmol/L (3.5-5.1); Sodium Level 139 mmol/L (136-145)
[2020-09-15 05:13] LABS: ALT/SGPT 27 U/L (12-78); AST/SGOT 18 U/L (15-37); Albumin 3.6 g/dL (3.4-5.0); Alkaline Phosphatase 72 U/L (45-117); Bilirubin Direct < 0.1 mg/dL (0-0.2); Bilirubin Total 0.2 mg/dL (0.2-1.0); Lipase 181 U/L (73-393); Protein, Total 7.3 g/dL (6.4-8.2)
--- NOTE | 2020-09-15 05:19 | ER ---
Nurse's Notes [facility] Name: Berto Perez Sr Age: 34 yrs Sex: Male : 1985 Arrival Date: 09/15/2020 Time: 01:05 Bed 13 Private MD: Diagnosis: Low back pain;Cholelithiasis Presentation: 09/15 01:23 Chief complaint: Patient states: sore throat and back pain since today, denies burning em with urination. Coronavirus screen: Client denies travel out of the [place] in the last 14 days. Ebola Screen: Patient negative for fever greater than or equal to 101.5 degrees Fahrenheit, and additional compatible Ebola Virus Disease symptoms Patient denies exposure to infectious person. Patient denies travel to an Ebola-affected area in the 21 days before illness onset. No symptoms or risks identified at this time. Initial Sepsis Screen: Does the patient meet any 2 criteria? No. Patient's initial sepsis screen is negative. Does the patient have a suspected source of infection? No. Patient's initial sepsis screen is negative. Risk Assessment: Do you want to hurt yourself or someone else? Patient reports no desire to harm self or others. Onset of symptoms was September 15, 2020. :23 Method Of Arrival: Ambulatory em 01:23 Acuity: QUINN 3 em Historical: - Allergies: : No Known Allergies; em - PMHx: : None; em - PSHx: : None; em - Immunization history:: Adult Immunizations up to date. - Social history:: Smoking status: Patient reports the use of cigarette tobacco products, smokes one pack cigarettes per day. - Family history:: not pertinent. - Hospitalizations: : No recent hospitalization is reported. Screenin:23 Abuse screen: Denies threats or abuse. Nutritional screening: No deficits noted. em Tuberculosis screening: No symptoms or risk factors identified. Fall Risk None identified. Assessment: 01:57 General: Appears uncomfortable, Behavior is calm, cooperative, appropriate for age. ad5 Pain: Complains of pain in back and chest. Neuro: Level of Consciousness is awake, alert, obeys commands, Oriented to person, place, time, situation, Appropriate for age. Cardiovascular: Heart tones S1 S2 present Capillary refill < 3 seconds Patient's skin is warm and dry. Respiratory: Reports shortness of breath cough that is pain with cough pain with movement pain with respiration Airway is patent Respiratory effort is even, unlabored, Respiratory pattern is regular, symmetrical. GI: No deficits noted. No signs and/or symptoms were reported involving the gastrointestinal system. : No deficits noted. No signs and/or symptoms were reported regarding the genitourinary system. EENT: Reports sore throat. Derm: Skin is pink, warm \T\ dry. 01:57 Respiratory: Breath sounds are clear bilaterally. ad5 03:00 Reassessment: Patient appears in no apparent distress at this time. Patient and/or ad5 family updated on plan of care and expected duration. Pain level reassessed. Patient is alert, oriented x 3, equal unlabored respirations, skin warm/dry/pink. Patient states symptoms have improved. 04:30 Reassessment: Patient appears in no apparent distress at this time. No changes from ad5 previously documented assessment. Patient and/or family updated on plan of care and expected duration. Pain level reassessed. Vital Signs: 01:23 BP 143 / 101; Pulse 102; Resp 18; Temp 97.7; Pulse Ox 100% on R/A; Weight 90.72 kg; em Height 5 ft. 10 in. (177.80 cm); Pain 10/10; 02:02 BP 136 / 103; Pulse 96; Resp 18 S; Pulse Ox 95% on R/A; ad5 03:28 Pulse 67; Resp 16 S; Pulse Ox 95% on R/A; ad5 04:59 BP 127 / 95; Pulse 61; Resp 16 S; Pulse Ox 95% on R/A; ad5 01:23 Body Mass Index 28.70 (90.72 kg, 177.80 cm) em ED Course: 01:05 Patient arrived in ED. bp1 01:15 Jorgito Romeo MD is Attending Physician. rn 01:22 Russell Duval is Primary Nurse. ad5 01:23 Patient has correct armband on for positive identification. Pulse ox on. NIBP on. em 01:26 Triage completed. em 01:26 Arm band placed on. em 02:00 Door closed. Noise minimized. Warm blanket given. Head of bed lowered. ad5 02:00 No provider procedures requiring assistance completed. Initial lab(s) drawn, by me, ad5 sent to lab. Inserted saline lock: 20 gauge in right antecubital area, using aseptic technique. Blood collected. 02:55 CT Aorta for Dissection Sent. ad5 03:04 CT Aorta for Dissection In Process Unspecified. EDMS 05:30 IV discontinued, intact, bleeding controlled, No redness/swelling at site. Pressure ad5 dressing applied. Administered Medications: 01:56 Drug: Demerol (meperidine) 50 mg {Note: RASS 0.} Route: IVP; Site: right antecubital; ad5 02:32 Follow up: Response: No adverse reaction; Pain is decreased; RASS: Alert and Calm (0) ad5 Outcome: 05:19 Discharge ordered by . rn 05:30 Discharged to home ambulatory. ad5 05:30 Condition: stable 05:30 Discharge instructions given to patient, Instructed on discharge instructions, follow up and referral plans. Demonstrated understanding of instructions, follow-up care. 05:31 Patient left the ED. ad5 Signatures: Dispatcher [employer] EDMS Samuel Crump RN RN em Nieto, Roman, MD MD rn Paniauga, Brittany bp1 Davidson, Andrea ad5 Corrections: (The following items were deleted from the chart) 01:28 01:23 Acuity: QUINN 4 em em 02:00 01:57 Respiratory: Reports shortness of breath cough that is pain with cough pain with ad5 respiration Airway is patent Respiratory effort is even, unlabored, Respiratory pattern is regular, symmetrical, ad5 05:09 04:59 Pulse 61bpm; Resp 16bpm; Spontaneous; Pulse Ox 95% RA; ad5 ad5
--- NOTE | 2020-09-15 05:20 | EDPHYS ---
Physician Documentation [facility] Name: Berto Perez Sr Age: 34 yrs Sex: Male : 1985 Arrival Date: 09/15/2020 Time: 01:05 Bed 13 Private MD: ED Physician Jorgito Romeo HPI: 09/15 01:42 This 34 yrs old Male presents to ER via Ambulatory with complaints of Back rn Pain. 01:42 The patient presents with pain that is acute, with no known mechanism of injury. The rn symptoms are located in the left subscapular area and right subscapular area. Onset: The symptoms/episode began/occurred yesterday. The pain does not radiate. Associated signs and symptoms: Pertinent negatives: abdominal pain, chest pain, fever, numbness, tingling, urinary retention, vomiting, weakness. The problem was sustained without known cause. Modifying factors: The patient symptoms are alleviated by remaining still, the patient symptoms are aggravated by any movement. Severity of symptoms: At their worst the symptoms were moderate, in the emergency department the symptoms are unchanged. The patient has not experienced similar symptoms in the past. Reports mid back pain, started yesterday, no known trauma, reports has been sick recently along with kids, with cough, no hemoptysis. Reports never has had pain like this before. . Historical: - Allergies: 01:26 No Known Allergies; em - PMHx: : None; em - PSHx: : None; em - Immunization history:: Adult Immunizations up to date. - Social history:: Smoking status: Patient reports the use of cigarette tobacco products, smokes one pack cigarettes per day. - Family history:: not pertinent. - Hospitalizations: : No recent hospitalization is reported. ROS: 01:42 Constitutional: Negative for fever, chills, and weight loss, Eyes: Negative for injury, rn pain, redness, and discharge, Neck: Negative for injury, pain, and swelling, Cardiovascular: Negative for chest pain, palpitations, and edema, Respiratory: Negative for shortness of breath, cough, wheezing, and pleuritic chest pain, Abdomen/GI: Negative for abdominal pain, nausea, vomiting, diarrhea, and constipation, Back: Negative for injury : Negative for injury, bleeding, discharge, and swelling, MS/Extremity: Negative for injury and deformity, Skin: Negative for injury, rash, and discoloration, Neuro: Negative for headache, weakness, numbness, tingling, and seizure. Exam: 01:42 Constitutional: This is a well developed, well nourished patient who is awake, alert, rn appears uncomfortable Head/Face: Normocephalic, atraumatic. Eyes: Periorbital areas with no swelling, redness, or edema. Cardiovascular: Tachycardic, regular. No pulse deficits. Respiratory: No increased work of breathing, no retractions or nasal flaring. Abdomen/GI: soft, non-tender Skin: Warm, dry MS/ Extremity: Pulses equal, no cyanosis. Neuro: Awake and alert, GCS 15 Vital Signs: 01:23 BP 143 / 101; Pulse 102; Resp 18; Temp 97.7; Pulse Ox 100% on R/A; Weight 90.72 kg; em Height 5 ft. 10 in. (177.80 cm); Pain 10/10; 02:02 BP 136 / 103; Pulse 96; Resp 18 S; Pulse Ox 95% on R/A; ad5 03:28 Pulse 67; Resp 16 S; Pulse Ox 95% on R/A; ad5 04:59 BP 127 / 95; Pulse 61; Resp 16 S; Pulse Ox 95% on R/A; ad5 01:23 Body Mass Index 28.70 (90.72 kg, 177.80 cm) em MDM: 01:15 Patient medically screened. rn 05:16 Differential diagnosis: Cholelithiasis pancreatitis, muscle spasm of back. Data rn reviewed: vital signs, nurses notes, lab test result(s), radiologic studies, CT scan, and as a result, I will discharge patient. Counseling: I had a detailed discussion with the patient and/or guardian regarding: the historical points, exam findings, and any diagnostic results supporting the discharge/admit diagnosis, lab results, radiology results, the need for outpatient follow up, to return to the emergency department if symptoms worsen or persist or if there are any questions or concerns that arise at home. Response to treatment: the patient's symptoms have markedly improved after treatment, and as a result, I will discharge patient. Special discussion: I discussed with the patient/guardian in detail that at this point there is no indication for admission to the hospital. It is understood, however, that if the symptoms persist or worsen the patient needs to return immediately for re-evaluation. ED course: No acute findings of back pain found, seems more muscular, ct aorta negative, BP improved with pain medication, incidental gallstone found but lfts normal and lipase normal. No abd pain or tenderness, will dc home with surgery f/u as needed. . 09/15 01:27 Order name: CBC with Diff rn 09/15 01:27 Order name: Basic Metabolic Panel; Complete Time: 05:16 rn 09/15 01:28 Order name: CBC with Automated Diff; Complete Time: 03:53 EDSC 09/15 04:27 Order name: LAB Add On eb 09/15 04:32 Order name: Liver (Hepatic) Function; Complete Time: 05:16 EDSC 09/15 04:32 Order name: Lipase; Complete Time: 05:16 EDSC 09/15 01:27 Order name: IV Start; Complete Time: 01:56 rn 09/15 01:27 Order name: CT Aorta for Dissection rn Administered Medications: 01:56 Drug: Demerol (meperidine) 50 mg {Note: RASS 0.} Route: IVP; Site: right antecubital; ad5 02:32 Follow up: Response: No adverse reaction; Pain is decreased; RASS: Alert and Calm (0) ad5 Disposition: 09/15/20 05:19 Discharged to Home. Impression: Low back pain, Cholelithiasis. - Condition is Stable. - Discharge Instructions: Back Pain, Adult, Food Choices for Gastroesophageal Reflux Disease, Adult, Gastroesophageal Reflux Disease, Adult, Cholelithiasis. - Medication Reconciliation Form, Thank You Letter, Antibiotic Education, Prescription Opioid Use form. - Follow up: Private Physician; When: As needed; Reason: Recheck today's complaints, Re-evaluation by your physician. - Problem is new. - Symptoms have improved. Signatures: Dispatcher [employer] EDSamuel Swanson RN RN em Nieto, Roman, MD MD rn Davidson, Andrea ad5 Corrections: (The following items were deleted from the chart) 05:31 05:19 09/15/2020 05:19 Discharged to Home. Impression: Low back pain; Cholelithiasis. ad5 Condition is Stable. Forms are Medication Reconciliation Form, Thank You Letter, Antibiotic Education, Prescription Opioid Use. Follow up: Private Physician; When: As needed; Reason: Recheck today's complaints, Re-evaluation by your physician. Problem is new. Symptoms have improved. rn
[2020-09-15 05:39] VITALS: TEMP 97.7
[2020-09-15 05:41] VITALS: O2SAT 95
[2020-09-15 05:43] VITALS: BP 127/95
--- NOTE | 2020-09-15 12:16 | RAD REPORT ---
EXAM DESCRIPTION: CT - Angio Aorta For Dissection - 09/15/2020 4:26 am CLINICAL HISTORY: The patient is 34 years old and is Male; back pain, hypertension TECHNIQUE: Axial computed tomographic angiography images of the chest, abdomen and pelvis with intra venous contrast. Sagittal and coronal reformatted images were created and reviewed. This CT exam was performed using one or more of the following dose reduction techniques: automated exposure cont rol, adjustment of the mA and/or kV according to patient size, and/or use of iterative reconstruction technique. MIP reconstructed images were created and reviewed. COMPARISON: No relevant prior studies available. FINDINGS: VASCULATURE: Aorta: No aortic aneurysm or dissection. Pulmonary arteries: No PE identified. Great vessels of aortic arch: No acute findings. No dissection. No arterial occlusion or sig nificant stenosis. Celiac trunk and mesenteric arteries: No acute findings. No occlusion or significant stenosis. Renal arteries: Two right renal arteries. Two left renal arteries. No occlusion or significant stenosis. Iliac arteries: No acute findings. No occlusion or significant stenosis. CHEST: Lungs: Dependent changes in the bilateral lower lobes. Pleural space: No pleural effusion or pneumothorax. Heart: Unremarkable. No cardiomegaly. No significant pericardial effusion. ABDOMEN: Liver: Enlarged fatty liver. Gallbladder and bile ducts: Distended gallbladder with 2 cm calcified stone at the gallbladder n crystal. No ductal dilation. Pancreas: Unremarkable. No ductal dilation. No mass. Spleen: Unremarkable. No splenomegaly. Adrenals: Unremarkable. No mass. Kidneys and ureters: Unremarkable. No hydronephrosis. No solid mass. Stomach and bowel: No bowel dilatation or obstruction. No bowel wall thickening. PELVIS: Appendix: The visualized appendix is normal. No pericecal inflammation to suggest acute appendic itis. Bladder: Unremarkable. No mass. Reproductive: Unremarkable as visualized. CHEST, ABDOMEN and PELVIS: Intraperitoneal space: Unremarkable. No significant fluid collection. No free air. Bones/joints: No acute fracture visualized. No dislocation. Soft tissues: Unremarkable. Lymph nodes: Unremarkable. No pathologically enlarged lymph nodes. IMPRESSION: 1. No aortic aneurysm or dissection. 2. Distended gallbladder with 2 cm calcified stone at the gallbladder neck. 3. Enlarged fatty liver. Electronically signed by: Pastora Medina MD 09/15/2020 4:12 AM CDT Due to temporary technical issues with the PACS/Fluency reporting system, reports are being signed by the in house radiologist without review as a courtesy to ensure prompt reporting. The interpreting r adiologist is fully responsible for the content of the report.
== END 2020-09-15 05:31 | disposition home or self-care (01) ==
LOC: ER 01:03
DX: K80.20 Calculus of gallbladder without cholecystitis without obstruction (principal); F17.210 Nicotine dependence, cigarettes, uncomplicated
CPT/HCPCS: 85025; 80048; 36415; 80076; 83690; 71275; 74175; Q9967; J2175

== ENCOUNTER 2020-10-07 06:26 | Day surgery (SDC) | payer OTHER ==
[2020-10-06 13:45] LABS: Absolute Lymphocytes (CBC) 2.7 K/uL (0.7-4.9); Basophils % 0.9 % (0-1.3); Hematocrit 46.1 % (39.6-49.0); MPV 7.8 fL (7.6-11.3); RBC Red Blood Cell Count 5.58 M/uL (4.33-5.43)
--- NOTE | 2020-10-06 13:49 | RAD REPORT ---
EXAM DESCRIPTION: RAD - Chest Pa And Lat (2 Views) - 10/06/2020 1:43 pm CLINICAL HISTORY: pre op Chest pain. COMPARISON: CHEST SINGLE VIEW dated 09/18/2013 FINDINGS: The lungs are clear. The heart is normal in size. No displaced fractures. IMPRESSION: No acute or concerning finding suspected.
[2020-10-06 14:37] LABS: ALT/SGPT 29 U/L (12-78); AST/SGOT 12 U/L (15-37); Albumin 3.8 g/dL (3.4-5.0); Alkaline Phosphatase 75 U/L (45-117); Amylase 57 U/L (25-115); BUN Blood Urea Nitrogen 18 mg/dL (7-18); Bicarbonate 26 mmol/L (21-32); Bilirubin Direct < 0.1 mg/dL (0-0.2); Bilirubin Total 0.2 mg/dL (0.2-1.0); Glucose Level 95 mg/dL (74-106); Lipase 103 U/L (73-393); Potassium 4.3 mmol/L (3.5-5.1); Protein, Total 7.5 g/dL (6.4-8.2); Sodium Level 139 mmol/L (136-145)
[2020-10-07] MEDS ORDERED: Ringers Lactate 1,000 ML IV ONE ×2 (06:52→09:19)
[2020-10-07] MEDS: CEFOXITIN/SWI 1gm 1 GM/10 ML SYR ONE ×2 (07:33→08:05)
[2020-10-07] MEDS ORDERED: propofoL 200 MG/20 ML VIAL IV ONE (07:36)
[2020-10-07] MEDS ORDERED: FENTANYL CITR 100 MCG/2 ML ONE (07:36)
[2020-10-07] MEDS ORDERED: ONDANSETRON 4 MG/2 ML VIAL ONE (07:37)
[2020-10-07] MEDS ORDERED: ROCURONIUM 50 MG/5 ML VIAL IV ONE (07:37)
[2020-10-07] MEDS ORDERED: dexAMETHasone 10 MG/ML VIAL ONE (07:37)
[2020-10-07] MEDS ORDERED: MIDAZOLAM HCL 2 MG/2 ML INJ ONE (07:37)
[2020-10-07] MEDS ORDERED: LIDOCAINE 1% MPF 5 ML VIAL ONE (07:37)
[2020-10-07] MEDS ORDERED: NEOSTIGMINE 1 MG/ML -5 ML ONE (08:58)
[2020-10-07] MEDS ORDERED: KETOROLAC 30 MG/ML INJ ONE (08:58)
[2020-10-07] MEDS ORDERED: GLYCOPYRROLATE 0.2 MG/ML SYR ONE (08:58)
--- NOTE | 2020-10-07 08:59 | P.BOP ---
Preoperative diagnosis: acute cholecystitis, symptomatic cholelithiasis Postoperative diagnosis: same Primary procedure: Laparoscopic cholecystectomy Estimated blood loss: <10cc Specimen: gb Findings: as above Anesthesia: General Complications: None Transferred to: Recovery Room Condition: Good
[2020-10-07] MEDS ORDERED: MORPHINE 10 MG/ML VIAL ONE (09:04)
[2020-10-07] MEDS ORDERED: CODEINE 30MG/APAP 300MG TAB ONE (10:19)
[2020-10-07 11:32] VITALS: BP 124/83; TEMP 97.6; O2SAT 95
== END 2020-10-07 11:15 | disposition home or self-care (01) ==
LOC: OR 06:26
PROVIDERS: ATTEND Surgery
PROC: 0FT44ZZ Resection of Gallbladder, Percutaneous Endoscopic Approach (ICD-10-PCS; principal; 2020-10-07 07:30)
DX: K80.10 Calculus of gallbladder with chronic cholecystitis without obstruction (principal)
CPT/HCPCS: 85025; 80048; 36415; 82150; 80076; 88304; 83690; 71046; 47562; J2704; J3010; J1100; J2710; J7120 ×2; J2405; J2250